=== PATIENT | female | born 1950 | race Caucasian/White ===

== ENCOUNTER 2023-06-07 12:10 | Outpatient (AMB) | payer MEDICARE, SELFPAY ==
--- NOTE | 2023-06-07 12:12 | MHC.OFFWIV ---
Intake Vital Signs 06/07/23 12:13 Height 5 ft 4 in Weight 146 lb BMI 25.1 BP 110/60 Blood Pressure Location Rt brachial Position Sitting Pulse 109 H Pulse Source Pulse Oximeter Temp 98.5 F Temp Source Temporal Artery Scan Pulse Oximetry (%) 96 Oxygen Delivery Method Room Air Intake Visit Reasons: EST/chills, and stuffy nose (lobby masked) Intake Note: Pt is here c/o body chills, runny nose since yesterday. Pt states no fever. Pt tested positive for COVID this morning on two home test. Patient Tobacco Use Status: Current everyday Tobacco user Allergies No Known Allergies [No Known Allergies*] Allergy (Unverified 06/07/23 12:13) Do you need a note to return to daycare/school/sports/work: Yes HPI HPI Comments History of Present Illness Details Patient is a 73yo F who presents to office with covid She said sudden onset of chills, fatigue, cough and congestion + body aches She took 2 covid tests, both which were positive She admits to phlegm production without CP or SOB No relief with anything at home No worsening factors No other complaints, denies having covid in past [facility] Social History Patient Tobacco Use Status: Current everyday Tobacco user Review of Systems Const Reports body aches, Reports chills and Reports fatigue ENT Denies dizziness and Reports nasal discharge Card Denies chest pain and Denies dyspnea Resp Reports chest congestion, Reports cough and Denies dyspnea GI Denies abdominal pain and Denies vomiting Musc Reports myalgias Neuro Denies dizziness Endo Reports fatigue Physical Exam Vital Signs: Last Vital Signs Temp 98.5 F 06/07/23 12:13 Pulse 109 H 06/07/23 12:13 BP 110/60 06/07/23 12:13 Pulse Ox 96 06/07/23 12:13 Oxygen Delivery Method Room Air 06/07/23 12:13 BMI result Body Mass Index 25.1 General: Non-toxic, NAD. Speaking full sentences. Skin: Warm dry throughout Eye: EOMI HENT: Airway patent. Uvula midline. No pharyngeal erythema or edema. 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 +rhinorrhea Bilateral canals clear. TM non-erythematous, non-bulging. No TM perforation or hemotympanum noted. Respiratory: CTA bilaterally. No wheezes, rales or rhonchi Cardiac: RRR (vitals tachycardia but normal on exam). No murmur MSK: Full ROM extremities. Neurology: A/O. No aphasia or facial droop. Gait without abnormality Psych: Good mood and affect Assessment & Plan Assessment & Plan (1) COVID: Code(s): U07.1 - COVID-19 Plan: Patient + covid at home yesterday and today Patient seen and evaluated and is in no acute distress Discussed paxlotr tx and mehcanism and pt would like to hold at this time and I am okay with this She will trial tylenol for body aches at home keep fluid hydration and rest F?U with PCP and ER if worse Did not need work note as she is retired We discussed 5 days mask wearing around and grandchildren in home and then 5 days mask wearing in public Discussed good hand hygeine Patient gave verbal understanding and had no additional questions or concerns at time of discharge All questions answered Coding Level of Care Code Est Pt Level 3 (85851) Diagnoses COVID U07.1
[2023-06-07 12:13] VITALS: BP 110/60; PULSE 109; TEMP 36.9; O2SAT 96; BMI 25.1
== END 2023-06-07 12:57 | disposition home or self-care (01) ==
PROVIDERS: Visit Provider Physician Assistant
DX: U07.1 COVID-19 (principal)
CPT/HCPCS: 99213

== ENCOUNTER 2023-11-03 08:23 | Outpatient (AMB) | payer MEDICARE, SELFPAY ==
--- NOTE | 2023-11-03 09:44 | AM.OFFWIN_ITS ---
Intake Vital Signs 3 11/03/23 09:45 Height 5 ft 4 in Weight 147 lb BMI 25.2 BP 118/68 Blood Pressure Location Rt brachial Position Sitting Pulse 65 Pulse Source Pulse Oximeter Temp 98.3 F Temp Source Oral Pulse Oximetry (%) 98 Oxygen Delivery Method Room Air Intake Visit Reasons: EP stung/LT side face swelling Intake Note: pt here c/o sting(unknown insect)/ LT side face swelling. Started yesterday afternoon Patient Tobacco Use Status: Current everyday Tobacco user Allergies No Known Allergies [No Known Allergies*] Allergy (Verified 11/03/23 09:45) Do you need a note to return to daycare/school/sports/work: No HPI HPI Comments 2 History of Present Illness0 Details 73 y/o female patient who presents to [facility] in clinic with c/o left delroy-orbital swelling. Pt was working in her Garden when she thinks an insect might have stung her left eye/Orbit area yesterday. She woke-up this morning and noticed swelling and mild tenderness. Denies any vision changes to left eye. Denies severe pain. She has been using Ice with some relief. [facility] Social History Patient Tobacco Use Status: Current everyday Tobacco user Review of Systems Const All systems reviewed & are unremarkable except as noted in HPI and below Physical Exam Vital Signs: Last Vital Signs Temp 98.3 F 11/03/23 09:45 Pulse 65 11/03/23 09:45 BP 118/68 11/03/23 09:45 Pulse Ox 98 11/03/23 09:45 Oxygen Delivery Method Room Air 11/03/23 09:45 BMI result Body Mass Index 25.2 Const General: comfortable and no acute distress Orientation/consciousness: patient oriented x3 Eyes Other: Left eye swelling, puffiness, redness around the orbital socket. Mild tenderness to touch. No facial edema, or tongue Conjunctivae: conjunctivae normal Sclerae: sclerae normal Corneas: corneas normal Pupils: Equal, round and reactive pupils present EOM: EOMs intact bilaterally Eyes/upper lids images: 2 1. Swelling orbital socket, tenderness and redness. Resp Effort & Inspection: normal respiratory effort Auscultation: clear to auscultation bilaterally Cardio Rate: regular rate Rhythm: regular rhythm Neuro General: patient oriented x3, gait normal and moves all extremities Cranial nerves: Yes Equal, round and reactive pupils present Psych Speech and movement: Normal speech and movement present Assessment & Plan Assessment & Plan (1) Periorbital swelling: Code(s): H57.89 - Other specified disorders of eye and adnexa Plan: Swelling left orbital socket, no vision changes Continue using Ice May use Benadrly OTC RTC if vision changes or severe pain. Medications: New 2 prednisone 50 mg PO DAILY 5 days 5 tabs 0RF H57.89 - Other specified disorders of eye and adnexa Coding Level of Care Code Est Pt Level 3 (78957) Diagnoses Periorbital swelling H57.89 Time Spent (min) 15
[2023-11-03 09:45] VITALS: BP 118/68; PULSE 65; TEMP 36.8; O2SAT 98; BMI 25.2
== END 2023-11-03 10:15 | disposition home or self-care (01) ==
PROVIDERS: PCP Internal Medicine; Visit Provider Nurse Practitioner Family
DX: H57.89 Other specified disorders of eye and adnexa (principal)
CPT/HCPCS: 99213

== ENCOUNTER 2023-12-07 10:05 | Outpatient (AMB) | payer MEDICARE, SELFPAY ==
[2023-12-07 10:28] VITALS: BP 118/76; PULSE 70; TEMP 36.8; O2SAT 96; BMI 24.9
--- NOTE | 2023-12-07 10:28 | MHC.OFFWIV ---
Intake Vital Signs 12/07/23 10:28 Height 5 ft 4 in Weight 145 lb BMI 24.9 BP 118/76 Blood Pressure Location Rt brachial Position Sitting Pulse 70 Pulse Source Pulse Oximeter Temp 98.3 F Temp Source Oral Pulse Oximetry (%) 96 Oxygen Delivery Method Room Air Intake Visit Reasons: EP Wasp stung Intake Note: pt c/o stung by wasp. Happened yesterday. LT upper arm red and swollen Patient Tobacco Use Status: Current everyday Tobacco user Allergies No Known Allergies [No Known Allergies*] Allergy (Verified 12/07/23 10:28) Do you need a note to return to daycare/school/sports/work: No HPI EP Wasp stung HPI Details This note is constructed using voice recognition software. While every effort has been made to ensure accuracy, targeting acquisition officer errors may have been included. The patient is a 73 year old female who presents to the clinic today with bee sting yesterday to her left upper arm. She denies history of anaphylaxis, and has been stung by a hornet last month requiring treatment with prednisone to help with the inflammation. She notes that she got stung and developed redness in the area and inflammation. She denies any dyspnea, or sensation of oral swelling. [facility] Social History Patient Tobacco Use Status: Current everyday Tobacco user Review of Systems Const All systems reviewed & are unremarkable except as noted in HPI and below Physical Exam Vital Signs: Last Vital Signs Temp 98.3 F 12/07/23 10:28 Pulse 70 12/07/23 10:28 BP 118/76 12/07/23 10:28 Pulse Ox 96 12/07/23 10:28 Oxygen Delivery Method Room Air 12/07/23 10:28 BMI result Body Mass Index 24.9 Const General: cooperative, healthy appearing, comfortable, no acute distress and alert Orientation/consciousness: patient oriented x3 Limitations: no limitations Resp Effort & Inspection: normal respiratory effort and able to speak in complete sentences Auscultation: clear to auscultation bilaterally Cardio Jugular venous distension: no JVD Palpation: normal PMI Rate: regular rate Heart sounds: S1 normal heart sound present, S2 normal heart sound present, no click, no gallops, no murmurs and no rubs Skin Other: Large local skin reaction with erythema and warmth surrounding bite to left upper arm. No discharge. General skin exam: no rashes or lesions noted, elasticity normal and turgor normal Neuro General: patient oriented x3 Psych Appearance: grossly normal Mental Status: mental status grossly normal Speech and movement: Normal speech and movement present Affect: normal affect Assessment & Plan Assessment & Plan (1) Bee sting reaction: Code(s): T63.441A - Toxic effect of venom of bees, accidental (unintentional), initial encounter Qualifiers: Encounter type: initial encounter Injury intent: accidental or unintentional Qualified Code(s): T63.441A - Toxic effect of venom of bees, accidental (unintentional), initial encounter Plan: Discussed treatment for potential infection, however patient denied at this time. Advised monitoring of signs of infection including erythematous streaking, fever which would warrant additional treatment. We will treat with 5 day burst of prednisone per patient request for symptomatic management. Advised patient to follow up with primary care provider as needed. Plan See above for full details and plan. Medications: New prednisone 40 mg (2 x 20 mg) PO DAILY 5 days 10 tabs 0RF Coding Level of Care Code Est Pt Level 3 (83919) Diagnoses Bee sting reaction, accidental or unintentional, initial encounter T63.441A Encounter type: initial encounter Injury intent: accidental or unintentional
== END 2023-12-07 11:14 | disposition home or self-care (01) ==
PROVIDERS: PCP Internal Medicine; Visit Provider Registered Nurse
DX: T63.441A Toxic effect of venom of bees, accidental (unintentional), initial encounter (principal)
CPT/HCPCS: 99213

== ENCOUNTER 2024-04-23 08:03 | Outpatient (AMB) | payer MEDICARE, SELFPAY ==
[2024-04-23 08:15] VITALS: BP 120/80; PULSE 73; TEMP 36.6; O2SAT 94
--- NOTE | 2024-04-23 08:15 | AM.OFFWIN_ITS ---
Intake Vital Signs 04/23/24 08:15 Weight 147 lb BP 120/80 Blood Pressure Location Lt brachial Position Sitting Pulse 73 Pulse Source Pulse Oximeter Temp 97.8 F Temp Source Oral Pulse Oximetry (%) 94 Oxygen Delivery Method Room Air Intake Visit Reasons: EP productive cough Intake Note: Patient here for cough, loss of voice that has been present for over 1 week. Patient Tobacco Use Status: Current everyday Tobacco user Allergies No Known Allergies [No Known Allergies*] Allergy (Verified 04/23/24 08:19) Do you need a note to return to daycare/school/sports/work: No HPI HPI Comments History of Present Illness Details History - The patient is a 73-year-old female pr esenting with acute hoarseness and cough. - Ongoing cough with phlegm for over a w redding, recent onset of hoarseness. - Granddaughter diagnosed with RSV five days ago; categorized as a recent exposure. - Absence of shortness of breath or whee zing reported. - Symptoms include fatigue, but appetite and hydration are intact. - Left ear presented with discomfort; chad britton Z-Joaquin treatment provided relief. Examination shows possible infection. - Tobacco use reported; occasionally use s albuterol and Flonase for symptomatic relief. Denies hx of lung issues such as COPD or asthma. Physical Exam General: Cooperative, healthy appearing, comfortable and no acute distress Orientation/consciousness: Patient oriented x3 Limitations: No limitations Head: Normal to inspection Ears: Hearing grossly normal bilaterally, external ears normal and TM's normal on the right, left TM w/purulent fluid Nose: Normal external nose present, Normal nares present and No nasal discharge present Face and sinus: Normal facial exam and Yes sinuses nontender Mouth: Normal oral and palatal mucosa present and moist mucous membranes Throat: Yes tonsils normal, Yes uvula midline. Posterior oropharynx erythema Eyes: Appearance normal, both eyes and all related structures Neck: Normal visual inspection Respiratory: Clear to auscultation bilaterally. Normal respiratory effort, able to speak in complete sentences, no respiratory distress, not tachypneic, no tripod positioning and no use of accessory muscles Cardiovascular: Regular rate and rhythm. Normal S1 and S2 Skin: No rashes or lesions noted Neuro: Patient oriented x3 Extremities: Normal to inspection and Yes no clubbing, cyanosis or edema PFSH Social History Patient Tobacco Use Status: Current everyday Tobacco user Review of Systems Const All systems reviewed & are unremarkable except as noted in HPI and below Physical Exam Vital Signs: Last Vital Signs Temp 97.8 F 04/23/24 08:15 Pulse 73 04/23/24 08:15 BP 120/80 04/23/24 08:15 Pulse Ox 94 04/23/24 08:15 Oxygen Delivery Method Room Air 04/23/24 08:15 Assessment & Plan Assessment & Plan (1) Viral pharyngitis: Code(s): J02.9 - Acute pharyngitis, unspecified Plan: Plan An empirical course of azithromycin will be initiated, targeting both the respiratory symptoms and the left ear infection, capitalizing on past success and potential anti-inflammatory effects. Testing for RSV, COVID-19, and influenza will confirm or exclude viral infections, guiding further care decisions. Symptomatic relief measures include utilizing decongestants, continued use of a humidifier, and her prescribed inhaler and Flonase for nasal congestion. With her tobacco use, support for smoking cessation should be advocated considering the likely impact on her respiratory condition. Warm tea with honey and rest are advised for relieving hoarseness symptomatically. Patient was informed and verbally consented to the use of an ambient scribe for clinic note documentation during this visit (2) Otitis media: Code(s): H66.90 - Otitis media, unspecified, unspecified ear Qualifiers: Otitis media type: suppurative Chronicity: acute Laterality: left Recurrence: non-recurrent Spontaneous tympanic membrane rupture: without spontaneous rupture Qualified Code(s): H66.002 - Acute suppurative otitis media without spontaneous rupture of ear drum, left ear Plan: as above Orders: Orders SARS-CoV2/FLU/RSV Today H66.90 - Otitis media, unspecified, unspecified ear, J02.9 - Acute pharyngitis, unspecified Medications: New azithromycin For 250 mg dose pack: take 500 mg today (day 1), then 250 mg for 4 days (days 2-5) PO 6 tabs 0RF Coding Level of Care Code New Pt Level 4 (76372) Diagnoses Viral pharyngitis J02.9 Non-recurrent acute suppurative otitis media of left ear without spontaneous rupture of tympanic membrane H66.002 Otitis media type: suppurative Chronicity: acute Laterality: left Recurrence: non-recurrent Spontaneous tympanic membrane rupture: without spontaneous rupture
== END 2024-04-23 09:12 | disposition home or self-care (01) ==
PROVIDERS: PCP Internal Medicine; Visit Provider Physician Assistant
DX: J02.9 Acute pharyngitis, unspecified (principal); H66.002 Acute suppurative otitis media without spontaneous rupture of ear drum, left ear

== ENCOUNTER 2024-04-23 08:03 | Outpatient (REF) | payer MEDICARE, SELFPAY ==
--- OUTSIDE RECORDS SUMMARY | 2024-04-23 08:33 | XMS_ITS | Patient Health Record ---
Author Organization [facility] Address [address] [place] [address] Care Team Providers Care Die Cleaner Name Role Phone Laney COOPER, Harisor Salvador Primary Care Provider Unav ailable Liz Jacobo Unavailable [phone] Allergies No Known Allergies Reason For Referral No Information Medications Medication SIG (Take, Route, Frequency, Duration) Notes Start Date End Date Status Rosuvastatin Calcium 10 MG 1 tablet Oral ly Once a day for 30 day(s) Active Levothyroxine Sodium 75 MCG 1 tablet in the morning on an empty stomach Orally Once a day for 30 day(s) Active Social History Tobacco Use: Social History Observation Description Date Details (start date - stop date) Current Smoker NA - NA Tobacco Use/Smoking Question Answer Notes Are you a: current smoker How many cigarettes a day do you smoke? 6-10 Alcohol Screen Question Answer Notes Did you have a drink containing alcohol in the p ast year? Yes Points 0 Interpretation Negative Tobacco use other than smoking: Question Answer Notes Are you an other tobacco user? No Plan Of Treatment Pending Test Test Name Order Date X ray : Foot, right 3V 02/23/2021 Insurance Providers Payer Name Payer Address Payer Phone Subscriber Number Group Number Insured Name Patient Relationship to Insured Coverage Start Date Coverage End Date Medicare [employer] [address] [place] [address] [phone] [id number] Aline Thomas Self - patient is the insured Med [facility] [address] [place] [address] [id number] Yan Thomas Spouse - patient is the spouse of the insured Medical (General) History Medical History History ICD Code thyroid High Cholesterol Surgical History Surgery Date(Month/Year)
[2024-04-23 10:57] LABS: Influenza A PCR NEGATIVE (Negative); Influenza B PCR NEGATIVE (Negative); Resp Syncy Virus RNA Qual PCR POSITIVE (Negative); SARS COV2 PCR INHOUSE NEGATIVE (Negative)
== END 2024-04-23 08:04 | disposition home or self-care (01) ==
LOC: HO.LAB 08:03
PROVIDERS: PCP Internal Medicine; Visit Provider Physician Assistant
DX: J02.9 Acute pharyngitis, unspecified (principal); H66.002 Acute suppurative otitis media without spontaneous rupture of ear drum, left ear
CPT/HCPCS: 0241U; 99202